=== PATIENT | female | born 1965 | race Caucasian/White ===

== ENCOUNTER → 2021-09-30 | Outpatient (CLI) | payer OTHER ==
[~2021-09-30] MED LIST: ALBU90OI INH; ASPI325 PO; AZIT250 PO; Albuterol2.5 MG/0.5 HHN; BENZ100A PO; CEFU250 PO; CIPR500 PO; CYCL10; FLUT.05NI; Flonase 0.05% N16 GM; HYDGUAL120 PO; IBUHYD; IBUP800 PO; MEDR150I IM; NAPR550 PO; OXYACE5T PO; PHENA200 PO; PRED20 PO; PROCODE120 PO; Zithromax250 MG PO
== END ==
LOC: LAB SHORT 17:36 → LAB 17:36
DX: R63.1 Polydipsia (principal)
CPT/HCPCS: 87070; 87075; 87106; 87205